=== PATIENT | male | born 1940 | race Caucasian/White ===

== ENCOUNTER 2018-09-13 09:02 | Outpatient (CLI) | payer OTHER ==
[~2018-09-13 09:02] MED LIST: COZAAR25 MG; LIPITOR20 MG; NORVASC5 MG
== END 2018-09-13 09:08 | disposition home or self-care (01) ==
LOC: RX STUDY 09:02
DX: K57.30 Diverticulosis of large intestine without perforation or abscess without bleeding (principal); R12 Heartburn; K64.8 Other hemorrhoids; Z86.010 Personal history of colon polyps; K30 Functional dyspepsia; K21.9 Gastro-esophageal reflux disease without esophagitis